=== PATIENT | female | born 1980 | race Caucasian/White ===

== ENCOUNTER 2018-07-18 15:44 | Emergency (ER) | payer OTHER ==
--- NOTE | 2018-07-18 15:48 | ED Physician Documentation ---
Dizziness - HISTORIAN Historian: patient - HPI Stated Complaint: dizziness Chief Complaint: Dizziness Timing: sudden onset Duration: constant Last known Well Code/Unknown Code: Unknown Severity: mild Associated Symptoms: nausea, headache, light headedness. denies: ringing in ear, vomiting, fainted, nearly fainted Decreased Ability to Stand/ Walk: walks w/o assistance. denies: weak, off balance, cannot walk, cannot stand, falling Usually: walks w/o assistance Worsened By: movement of head Further Comments: yes (dizziness since this afternoon in the car pool line. She states that she felt waves of nausea. She has no head injury. No headache until she had one episode of vomiting prior to the car pool. No fever. No other complaints. No chest pain. No shortness of air.) - ROS CONST: none EYES/ENT: none LNMP: other (06.20.2018) MS/SKIN/LYMPH: none NEURO/PSYCH: anxiety - PAST HX Past History: other (anxiety ) Allergies/Adverse Reactions: Allergies Allergy/AdvReac Type Severity Reaction Status Date / Time contrast dye Allergy Unknown Uncoded 07/18/18 15:57 Home Medications: Ambulatory Orders Medication Instructions Recorded Venlafaxine HCl [Effexor] 150 mg PO DAILY u2 05/26/13 Thyroid,Pork [Henderson Thyroid] 90 mg PO DAILY 08/24/15 - SOCIAL HX Smoking History: non-smoker Alcohol Use: none Drug Use: none - FAMILY HX Family History: none - VITAL SIGNS Vital Signs: Vital Signs Temp Pulse Resp BP Pulse Ox 140/89 08/24/15 05:24 Progress - Progress Progress: 1700: reports her symptoms have greatly improved. Awaiting labs DG 1730: She is feeling better would like to go with a call on labs DG 2145: notified of lab DG Dizziness Physical Exam - Physical Exam General Appearance: no distress EENT: eye inspection normal, SHAI Neck: normal inspection Respiratory: no respiratory distress, breath sounds nml, chest non-tender CVS: reg rate & rhythm, heart sounds normal Abdomen: soft, no distension Skin: warm/dry, normal color Neuro: nml orientation, nml speech, nml cognition, mood/affect nml Extremities: non-tender, no edema Discharge Clincal Impression: Dizziness Referrals: Arelis Nugent MD [Primary Care Provider] - 2 Days Comments: 1. rest 2. continue meds 3. increase fluid 4. change position slowly 5. See PCP in 2-4 days 6. return to ER for any concerns She did not want to await labs due to feeling better Condition: Stable Disposition: 01 HOME, SELF-CARE Decision to Admit: NO Date of Decison to Admit: 07/18/18 Decision Time: 17:35
[2018-07-18] MEDS ORDERED: 0.9 % SODIUM CHLORIDE 1,000 ML IV SCH (16:00)
[2018-07-18] MEDS ORDERED: LORazepam 1 MG TABLET PO ONE (16:02)
[2018-07-18] MEDS ORDERED: ONDANSETRON HCL 4 MG TAB.RAPDIS PO ONE (16:03)
[2018-07-18] MEDS ORDERED: 0.9 % SODIUM CHLORIDE 1,000 ML IV ONE (16:20)
[2018-07-18 18:07] VITALS: BP 135/73
[2018-07-18 19:36] LABS: eGFR (Non-African) > 60
[2018-07-18 20:01] LABS: BASO % 0.3 % (0.0-1.5); EOS % 0.2 % (0.0-6.8); LYMPH ABS # 2.26 thou/uL (0.60-4.00); MCH. 28.4 pg (28.0-34.0); MCV 86.1 fL (80.0-100.0); MONOCYTE % 4.2 % (0.0-11.0); MONOCYTE ABS # 0.47 thou/uL (0.00-0.90); PLATELET COUNT 368 thou/uL (130-400)
[2018-07-19 04:13] LABS: OCCULT BLOOD,URINE NEGATIVE (NEGATIVE); PH URINE 6.5 (5.0 - 8.0); UROBILINOGEN URINE 0.2 Eu (0.2-1.0)
[2018-07-19 04:15] LABS: URINE HCG NEGATIVE (NEGATIVE)
== END 2018-07-18 17:30 | disposition home or self-care (01) ==
LOC: ED 15:44
DX: R42 Dizziness and giddiness (principal)
CPT/HCPCS: 80053; 84703; 85025; A9270; J7030; 81002; 81025; 93005; 96365; S1016

== ENCOUNTER 2019-10-04 14:56 | Emergency (ER) | payer OTHER ==
--- NOTE | 2019-10-04 15:13 | ED Physician Documentation ---
Chest Pain - HISTORIAN Historian: patient - HPI Stated Complaint: chest pain Chief Complaint: Chest Pain Additional Information: Patient presents to ED with complaints of chest pain associated with diaphoresis and nausea. Patient states she was out with her family shopping when she began to feel shaky, break out in a sweat and have nausea followed by sharp left sided chest pain, 6/10, nonradiating. She continued to shop, the chest comfort subsided but the nausea and shakiness persisted. She states, "I have anxiety but have never had chest pain with it before". She had diarrhea last night. Denies fever. Family history; HTN, high cholesterol, hypothyroid Onset: hours (2) Timing: gradual onset Duration: persistent Last known Well Date: 10/04/19 Last Known Well Time: 12:00 Context: activity Severity: moderate Quality: pressure, dull Chest Pain Radiation: no radiation Chest Pain Signs/Symptoms: nausea, diaphoresis Worsened By: nothing Relieved By: nothing - ROS CONST: denies: fever MS/LYMPH: denies: calf pain GI/: nausea, diarrhea. denies: abdominal pain EYES/ENT: none SKIN/ENDO: none NEURO/PSYCH: none - PAST HX VT risk factors: no pertinent history DVT/PE Risk Factors: none TAD/AAA risk factors: none Neuro deficit: none GI disease: none Lung disease: none Surgeries/Procedures: none Allergies/Adverse Reactions: Allergies Allergy/AdvReac Type Severity Reaction Status Date / Time contrast dye Allergy Unknown Uncoded 10/04/19 15:32 Home Medications: Ambulatory Orders Medication Instructions Recorded Venlafaxine HCl [Effexor] 150 mg PO DAILY u2 05/26/13 Thyroid,Pork [Rule Thyroid] 90 mg PO DAILY 08/24/15 Clonazepam 0.5 mg PO PRN PRN 10/04/19 Gabapentin 100 mg PO TID 10/04/19 Ondansetron HCl Rapdis [Zofran Odt] 4 mg PO Q8 PRN #20 tab 10/04/19 Ondansetron HCl Rapdis [Zofran Odt] 4 mg PO Q8 PRN #20 tab 10/04/19 - SOCIAL HX Smoking History: non-smoker Alcohol Use: none Drug Use: none - FAMILY HX Family HX: none - VITAL SIGNS Vital Signs: Vital Signs Temp Pulse Resp BP Pulse Ox 135/73 07/18/18 18:03 - REVIEWED ASSESSMENTS Nursing Assessment Reviewed: Yes Vitals Reviewed: Yes Progress - EKG/XRAY/CT EKG: NSR Comments: 15[address] elevation ED Results Lab/Radiology - Radiology Radiology Impressions: CXR - no acute cardiopulmonary processes. - Orders Orders: ED Orders Category Date Time Status Place IV Lock 1T Care 10/04/19 15:07 Active CBC/PLATELET/DIFF Routine Lab 10/04/19 Ordered CMP Routine Lab 10/04/19 Ordered TROPONIN I Stat Lab 10/04/19 Ordered 0.9 % Sodium Chloride [Normal Saline] 1,000 ml Med 10/04/19 15:07 Active IV Q1H Ondansetron HCl/Pf [Zofran] Med 10/04/19 15:07 Discontinued 4 mg IVP NOW ONE EKG WITH COMPARISON Stat Ther 10/04/19 Ordered Chest Pain Physical Exam - EXAM General Appearance: no acute distress, alert EENT: SHAI Neck: nml inspection Respiratory: no resp. distress, chest non-tender, nml breath sounds CVS: reg. rate & rhythm, no murmur Abdomen: soft, normal bowel sounds, non-tender Skin: warm/dry, normal color Extremities: non-tender, no evidence of injury, no edema Neuro: oriented X3, mood/affect nml Discharge Clincal Impression: Non-cardiac chest pain Nausea & vomiting Qualifiers: Vomiting type: unspecified Vomiting Intractability: non-intractable Qualified Code(s): R11.2 - Nausea with vomiting, unspecified Prescriptions: Ondansetron HCl Rapdis [Zofran Odt] 4 mg PO Q8 PRN #20 tab PRN Reason: nausea/vomiting Ondansetron HCl Rapdis [Zofran Odt] 4 mg PO Q8 PRN #20 tab PRN Reason: nausea/vomiting Referrals: Arelis Nugent MD [Primary Care Provider] - 2 Days Additional Instructions: 1. Zofran every 8 hours as needed for nausea 2. Tylenol and/or Ibuprofen as needed for pain 3. Drink plenty of fluids to maintain proper hydration. Avoid caffeine and alcohol 4. Follow up with PCP within 1 week 5. Return to ER for new or worsening symptoms Condition: Stable Disposition: 01 HOME, SELF-CARE Decision to Admit: NO Date of Decison to Admit: 10/04/19 Decision Time: 16:19
[2019-10-04 15:26] LABS: BASOPHILS % 0.5 % (0.0-1.5); NEUTROPHILS # 5.2 # k/uL (1.4-7.7)
[2019-10-04] MEDS: 0.9 % SODIUM CHLORIDE 1,000 ML IV ONE (15:30)
[2019-10-04] MEDS: ONDANSETRON HCL/PF 4 MG/ 2ML VIAL IVP ONE (15:35)
[2019-10-04 15:36] LABS: eGFR (Non-African) > 60
[2019-10-04] MEDS: ASPIRIN 81 MG CHEW TAB PO ONE (15:38)
--- NOTE | 2019-10-04 16:24 | Diagnostic Imaging Report ---
PATIENT MR#: [id number] PATIENT PATIENT NAME: TATI CHOE DATE OF : 1980 REFERRING PHYSICIAN: Briana Madrid EXAM DATE: 10/04/2019 ACCESSION NUMBER: [id number] EXAM DESCRIPTION: CHEST 1VIEW Chest, 1 view History: Order states: Chest pain Pt states: Nausea and chest pain No prior exams for comparisons Findings: The heart size is normal. The lungs are clear. There is no pleural effusion or pneumothorax identified. The osseous structures are normal. Impression: 1. No acute pulmonary disease. Read by: Dr. Obdulio Robert Transcribed by: Transcribed Date: Electronically signed by: Dr. Obdulio Robert Date signed: 10/04/2019 4:23:51 PM
[2019-10-04 16:42] VITALS: BP 145/85
== END 2019-10-04 16:25 | disposition home or self-care (01) ==
LOC: ED 14:56
DX: R11.2 Nausea with vomiting, unspecified (principal); R07.89 Other chest pain
CPT/HCPCS: 71045; 80053; 84484; 85025; 93005; 96361; 96374; 99283; 99284; J2405; J7030; S1016